=== PATIENT | male | born 1950 | race African-American/Black ===

== ENCOUNTER → 2017-05-04 | Day surgery (SDC) | payer MEDICARE ==
[~2017-05-04] MED LIST: ADCIRCA20 MG PO; ALLERGY RELIEF10 M1 PO; AMLODIPINE BESYL5 MG PO; ANEXSIA 5/325 M1 TA1 PO; ASPIRIN81 M1; ASPIRIN81 M1 PO; ATARAX PO; ATENOLOL50 MG PO; BACTRIM DS TABL1 TA1 PO; BAYER ASPIRIN325 M1 PO; BENTYL10 MG PO; BENTYL20 MG PO; BP MED; BUMETANIDE1 MG PO; CARVEDILOL25 MG PO; CEPHALEXIN500 M1 PO; CLARITIN10 M3 PO; COREG12.5 MG PO; EC-NAPROSYN500 MG PO; FLONASE16 GM; FLUTICASONE; GLUCOPHAGE XR500 MG PO; GLUCOTROL XL PO; HYDROCHLOROTHIA25 MG PO; IMDUR-ER60 M1 PO; INDOMETHACIN25 MG PO; ISOSORBIDE PO; JANUVIA25 MG PO; JANUVIA50 MG PO; KEFLEX500 MG PO; LANTUS; LANTUS SUBQ; LANTUS100 U/M1 SUBQ; LASIX20 MG PO; LINZESS290 MCG PO; LIPITOR; LIPITOR20 MG PO; LISINOPRIL PO; LISINOPRIL5 MG PO; LOSARTAN POTASS25 MG PO; METFORMIN HCL500 M1; MOVANTIK25 MG; MUPIROCIN; NAPROSYN-EC500 M1 PO; NAPROSYN500 MG PO; NIZORAL 2% CREA15 GM EXT; NORCO 7.5-3251 EACH PO; NOVOLOG; NOVOLOG SUBQ; NOVOLOG100 U/M1 SUBQ; OMEPRAZOLE40 M1 PO; OMEPRAZOLE40 MG PO; PAIN MED; PHENERGAN25 MG PO; PRILOSEC20 MG PO; RANEXA500 MG PO; RENAGEL800 MG PO; RENVELA PO; RENVELA800 MG PO; SUMATRIPTAN SU100 MG PO; TENORMIN50 MG PO; TIZANIDINE HCL4 M1 PO; VICODIN; VICODIN ES 7.51 EAC1 PO; VICTOZA SUBQ; VITAMIN D2400 UNIT; WATER PILL; ZOFRAN ODT4 MG PO; ZOMIG NS
--- NOTE | ~2017-05-04 | OR ---
Unit #: [id number] #: [id number] Patient: ELICIA LATHAM, [id number] [address] [address] [id number] O MR#: [id number] NAME: ELICIA LATHAM SR ROOM: Date of Procedure: 05/04/2017 Admission Date: 05/04/2017 Surgeon: Shaq Stallworth M.D. : 1950 Attending Physician: Shaq Stallworth M.D. Primary Care Physician: Generic Doctor Not In System OPERATIVE REPORT PROCEDURE PERFORMED Esophagogastroduodenoscopy with polypectomy and hot snare. INDICATIONS FOR PROCEDURE The patient with history of gastric polyps, Beaulieu esophagus, chronic gastroesophageal reflux disease, undergoing evaluation with upper endoscopy. MEDICATIONS Monitored anesthesia. POSTOPERATIVE FINDINGS 1. Hiatal hernia, small area of Beaulieu esophagus. 2. Multiple large gastric polyps in the cardia as well as in the body area. Several large polyps were snared sent for histopathology. 3. Large polyp in the cardia, could not be snared, because of technical difficulty. 4. Gastritis. 5. Normal duodenum and distal duodenum. PLAN Follow up on pathology report. Continue PPI therapy and reflux precautions. DESCRIPTION OF PROCEDURE The patient was explained of the procedure, risks, and benefits along with the risks and benefits of anesthesia. He was brought to the endoscopy room. Propofol anesthesia was given. Bite block was placed. The scope was passed down the mouth into the esophagus, stomach, duodenum, and distal duodenum. Findings as described. Several large polyps were snared and pulled out of the stomach. Small Beaulieu's noted. No biopsies were taken from this area. Gently, the scope was pulled out. He tolerated it well. Dictated by... Bianka Gandara/kiana TD: 05/04/2017 14:06 Unit #: [id number] #: [id number] Patient: ELICIA LATHAM SR JOB #: [id number] CC: Ismael Greenwood M.D. OPERATIVE REPORT Page 1 of 1 X Shaq Stallworth MD PROCEDURE OPERATIVE NOTE
== END | disposition home or self-care (01) ==
LOC: COPS 07:06
DX: K22.70 Barrett's esophagus without dysplasia (principal); K31.7 Polyp of stomach and duodenum; K44.9 Diaphragmatic hernia without obstruction or gangrene; K29.70 Gastritis, unspecified, without bleeding; K21.9 Gastro-esophageal reflux disease without esophagitis; E11.22 Type 2 diabetes mellitus with diabetic chronic kidney disease; I12.9 Hypertensive chronic kidney disease with stage 1 through stage 4 chronic kidney disease, or unspecified chronic kidney disease; N18.3 Chronic kidney disease, stage 3 (moderate); Z79.4 Long term (current) use of insulin; R13.10 Dysphagia, unspecified; M19.90 Unspecified osteoarthritis, unspecified site; I25.10 Atherosclerotic heart disease of native coronary artery without angina pectoris; Z95.1 Presence of aortocoronary bypass graft; Z98.890 Other specified postprocedural states; Z91.040 Latex allergy status; Z88.8 Allergy status to other drugs, medicaments and biological substances
CPT/HCPCS: 82947; 88305; 88312